=== PATIENT | female | born 1985 | race Caucasian/White ===

== ENCOUNTER 2017-07-12 17:26 | Emergency (ER) | payer SELFPAY ==
[~2017-07-12] VITALS: Ht 170.2 cm; Wt 56.8 kg
[2017-07-12 17:31] VITALS: BP 96/65; PULSE 101; RESP 16; O2SAT 99
--- NOTE | 2017-07-12 17:44 | ED.REPORT ---
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 The pain radiates to the mid chest and has been intermittent, but is presently rated at 9/10 in severity. Associated symptoms include cough, feeling "spacy" and forgetful, SOB, nausea, vomiting and dyspnea on exertion, though she denies fever, chills or back pain. The pt has been taking ibuprofen to treat her symptoms. Nursing Notes Stated Complaint: PAIN LEFT SIDE BREAST Chief Complaint: Chest Pain Nursing Notes Reviewed: Yes Allergies: Coded Allergies: No Known Allergies (Unverified , 07/12/17) General Time Seen by MD: 17:43 Chief Complaint Chest pain Hx Obtained From: Patient Arrived By: Walk-in Sudden in Onset?: No Onset Occurred: 1 week ago Symptom Duration: Intermittent Location: : Chest left Severity: Current: Pain level 9 out of 10 Severity: Maximum: Severe Recent Healthcare: No recent doctor visit, No recent hospitalization Similar Sx Previous: No Risk Factors )( CAD Risk Stratification Risk factors reviewed Past Medical History Past Medical History FAP s/p polyp removal Past Surgical History Removal of large intestine and colon Family History [place] - father Smoking History Current Some Day Smoker Social History Other Social History: Good social support Ambulatory Status Independent Review of Systems feeling "spacy" and forgetful Constitutional: Denies: Chills, Fever Respiratory: Reports: Dyspnea on exertion, Non-productive cough, Shortness of breath Cardiovascular: Reports: Chest pain GI: Reports: Nausea, Vomiting Musculoskeletal: Denies: Back pain, Neck pain Neurologic: Denies: Slurred speech Complete sys rev & neg: except as marked. Eyes: Denies: Blurred bilateral Ears / Nose / Throat: Denies: Throat swelling Allergy / Immune: Denies: Itching, Rhinorrhea Physical Exam Initial Vital Signs Vital Signs (First) Date Time Temp Pulse Resp B/P Pulse Ox O2 Delivery O2 Flow Rate FiO2 07/12/17 17:31 36.8 101 16 96/65 99 Room Air Initial VS: Reviewed Head / Eyes: Atraumatic, Normocephalic, PERRL Neck: Supple, Full range of motion Abdomen / GI: Soft, Non-tender Skin: Warm, Dry, No cyanosis Neurologic: Alert, Oriented, Nonfocal Psychiatric: Mood/affect normal, Behavior normal General/Constitutional: Awake, Alert, Well appearing Respiratory / Chest: Atraumatic, Breath sounds NL, Breath sounds = bilat, No respiratory distress Cardiovascular: Heart rate NL, Regular rhythm, Heart sounds NL Lower Extremity / Pelvis / MS: Atraumatic, No swelling, Neurologic intact, Vascular intact, No edema Upper Extremity / MS: Atraumatic Interpretation & Diagnostics Lab Results Interpretation Result Diagram: 07/12/17 1755 07/12/17 1755 Test 07/12/17 17:55 White Blood Count 7.8th/mm3 (3.8-10.1) Red Blood Count 4.79mil/mm3 (3.90-5.20) Hemoglobin 14.4g/dL (12.0-15.6) Hematocrit 42.5% (35.0-46.0) Mean Corpuscular Volume 88.7fL (81-100) Mean Corpuscular Hemoglobin 30.1pg (27.0-35.0) Mean Corpuscular Hemoglobin Concent 33.9% (32.0-37.0) Red Cell Distribution Width 13.6% (12.3-15.4) Platelet Count 289bil/L (150-400) Neutrophils (%) (Auto) 64.4% (40-74) Lymphocytes (%) (Auto) 28.6% (14-46) Monocytes (%) (Auto) 4.6% (4-12) Eosinophils (%) (Auto) 1.8% (0-5) Basophils (%) (Auto) 0.5% (0-3) D-Dimer < 0.50mg/L FEU (<0.50) Sodium Level 137mEq/L (134-144) Potassium Level 4.2mEq/L (3.5-5.2) Chloride Level 101mEq/L (97-108) Carbon Dioxide Level 21mmol/L (18-29) Blood Urea Nitrogen 11mg/dL (6-20) Creatinine 0.57mg/dL (0.57-1.00) Estimat Glomerular Filtration Rate 177mL/min (>59) Glucose Level 90mg/dL (60-99) Calcium Level 9.9mg/dL (8.5-10.1) Magnesium Level 2.2mg/dL (1.6-2.6) Total Bilirubin 0.2mg/dL (0.0-1.2) Aspartate Amino Transf (AST/SGOT) 15U/L (0-50) Alanine Aminotransferase (ALT/SGPT) 11U/L (0-32) Alkaline Phosphatase 48U/L (25-150) Troponin T < 0.010ug/L (0.0-0.011) Total Protein 8.1g/dL (6.4-8.4) Albumin 4.8g/dL (3.4-5.0) Hold Chappell Top Tube Received (Received) ECG Interpretation ECG Interpretation: Sinus rhythm normal with rate of 87 J point elevatioin Time: 17:56 Interpreted by: ED physician X-Ray Chest Interpretation Chest Xray Interpretation: IMPRESSION: No acute pulmonary process. Dictated by: Claudia Pantoja M.D. on 07/12/2017 at 19:46 View: AP & lat Re-Eval/Medical Decision Re-Evaluation/Progress : Time of Eval: 20:41 Re-Evaluation/Progress Note: Pt rechecked. Informed pt of diagnosis and plan for discharge. The pt understands and agrees with plan for discharge. F/U instructions and RTER warnings given. All questions addressed at this time. Counseled Regarding: Diagnosis, Lab results, Need for follow-up, When/why to return to ED Discharge & Departure Primary Impression: Costochondritis Disposition: Home Discharge Condition All VS Reviewed: Yes Condition: Stable Patient Instructions: Costochondritis (ED) Additional Instructions: Thank you for trusting us with your care today. Your emergency department evaluation today including examination, lab work, EKG and chest x-ray are reassuring that there is no emergent case for concern at this time time and I believe your symptoms are due to costochondritis. I highly recommend that you schedule a follow up appointment with your primary care physician in the next 2-3 days. Take ibuprofen 800 mg 3 times a day as needed for pain, hydrocodone as needed for breakthrough pain. Please return to the Emergency Department for any new or worsening symptoms. Referrals: Lindsay Freeman MD Scribe Attestation Portions of this note were transcribed by Tavia Grant and Noe Bell. IDr. Anam personally performed the history, physical exam and medical decision-making; I reviewed and confirmed the accuracy of the information in the transcribed note. Signed by: Tavia Grant and Salvador Jones, 07/12/17. copies to: Lindsay Freeman MD, Gary R DO Jul 12, 2017 17:44 Tavia Grant Jul 12, 2017 17:51 NOE BELL Jul 12, 2017 18:26
[2017-07-12 18:13] LABS: BASOPHILS % (AUTO) 0.5 % (0-3); EOSINOPHILS % (AUTO) 1.8 % (0-5); MONOCYTES % (AUTO) 4.6 % (4-12); Mean Corpuscular Hemoglobin 30.1 pg (27.0-35.0); Mean Corpuscular Volume 88.7 fL (81-100); NEUTROPHILS % (AUTO) 64.4 % (40-74); Platelet Count 289 bil/L (150-400)
[2017-07-12 18:38] LABS: Magnesium 2.2 mg/dL (1.6-2.6)
[2017-07-12 18:42] LABS: TROPONIN T < 0.010 ug/L (0.0-0.011)
--- NOTE | 2017-07-12 19:48 | DRSVH ---
PROCEDURE: X-RAY CHEST, TWO VIEWS ([id number]) INDICATIONS: chest pain, shortness of breath TECHNIQUE: 2 views of the chest were acquired. COMPARISON: None. FINDINGS: Surgical changes and devices: None. Lungs and pleura: No pleural effusions or pneumothorax. Lungs are clear. Mediastinum: Mediastinal contours are normal. Heart size is normal. Bones and chest wall: No suspicious bony abnormalities. Soft tissues appear unremarkable. IMPRESSION: No acute pulmonary process. Dictated by: Claudia Pantoja M.D. on 07/12/2017 at 19:46 Approved by: Claudia Pantoja M.D. on 07/12/2017 at 19:46
[2017-07-12 20:22] VITALS: BP 101/67; PULSE 80; RESP 16; O2SAT 98
[2017-07-12] MEDS ORDERED: HYDROcodone-APAP 5-325 mg Tablet PO ONE (20:30)
[2017-07-12] MEDS ORDERED: _HYDROcodone/APAP 5-325 mg Tablet PO PRN (20:55)
== END 2017-07-12 21:21 | disposition home or self-care (01) ==
LOC: SED 17:26
DX: M94.0 Chondrocostal junction syndrome [Tietze] (principal); R05 Cough; R06.02 Shortness of breath; R11.0 Nausea; F17.200 Nicotine dependence, unspecified, uncomplicated
CPT/HCPCS: 36415; 71020; 80053; 83735; 84484; 85025; 85378; 93005; 96372; 99285; J1885